=== PATIENT | male | born 1990 | race Caucasian/White ===

== ENCOUNTER → 2018-03-02 | Outpatient (CLI) | payer BC ==
--- NOTE | 2018-03-02 11:55 | NM ---
EXAMINATION TYPE: NM bone 3 phase DATE OF EXAM: 03/02/2018 COMPARISON: NONE HISTORY: Pain and lump left tibia fibula Triple phase bone scintigraphy was performed following the injection of 23.6 mCi Tc 99m MDP. Immedia te images and 3.5 hours post injection images acquired. FINDINGS: There is slight asymmetry with increased flow to the right lower extremity. There is increased uptake involving the cortex of the medial margin proximal diaphysis of the left ti nargis. IMPRESSION: 1. Nonspecific uptake proximal diaphysis medial margin left tibia. Differential diagnosis would inclu de stress injury as well as intraosseous lesion. Recommend x-ray correlation.
== END | disposition home or self-care (01) ==
LOC: RADNMMAIN 07:26
PROVIDERS: ATTEND Family Medicine
DX: R22.42 Localized swelling, mass and lump, left lower limb (principal)
CPT/HCPCS: 78315; A9503